=== PATIENT | female | born 1965 | race Caucasian/White ===

== ENCOUNTER 2019-09-02 20:18 | Outpatient (REF) | payer BC, SELFPAY ==
[2019-09-02 21:02] LABS: Hemoglobin A1C 5.4 % (3.8-5.6)
[2019-09-02 21:06] LABS: TSH 0.62 uIU/mL (0.36-3.74)
== END 2019-09-02 20:38 ==
LOC: NCHCN 20:18
PROVIDERS: PCP Nurse Practitioner Family; Visit Provider Family Medicine
DX: E03.9 Hypothyroidism, unspecified (principal); Z13.1 Encounter for screening for diabetes mellitus
CPT/HCPCS: 83036; 84443

== ENCOUNTER 2019-11-03 12:43 | Outpatient (REF) | payer BC, SELFPAY ==
--- NOTE | 2019-11-03 11:00 | PAPFT_PTH ---
PATIENT: Cristina Etienne LOC: [facility]#:[id number] AGE/SX: 54/F ROOM: RE11/03/[address]: Deb Huynh : 1965 BED: DIS: 11/03/2019 SPEC #: [id number] RECD: 11/04/19 12:39 STATUS: MARY KATE ELAINE #: [id number] IGOR: 11/03/19 11:[address]: Deb Mcgrath DEPT: [facility] Cytology RECD BY: Penelope Chavez ENTERED: 11/04/19 12:40 SP TYPE: PAPFT OTHR DR: Kristin Hicks Tissues: 1 - CX/ENDOCX FOR PAP SMEARS Procedures: PAP THIN PREP/[facility] Screening HPV DNA PROBE Comments: [id number]
== END 2019-11-03 13:03 ==
LOC: NCHCN 12:43
PROVIDERS: PCP Nurse Practitioner Family; Visit Provider Nurse Practitioner Family
DX: Z00.00 Encounter for general adult medical examination without abnormal findings (principal); Z12.4 Encounter for screening for malignant neoplasm of cervix; Z11.51 Encounter for screening for human papillomavirus (HPV)
CPT/HCPCS: 88142; 87624

== ENCOUNTER 2020-08-31 17:48 | Outpatient (REF) | payer OTHER, SELFPAY ==
[2020-08-31 22:06] LABS: TSH 0.81 uIU/mL (0.36-3.74)
== END 2020-08-31 17:49 | disposition home or self-care (01) ==
LOC: NCHCN 17:48
PROVIDERS: PCP Nurse Practitioner Family; Visit Provider Family Medicine
DX: E03.9 Hypothyroidism, unspecified (principal)
CPT/HCPCS: 84443

== ENCOUNTER 2021-12-19 15:04 | Outpatient (REF) | payer OTHER, SELFPAY ==
[2021-12-19 15:28] LABS: TSH 0.56 uIU/mL (0.36-3.74)
== END 2021-12-19 15:05 | disposition home or self-care (01) ==
LOC: NCHCN 15:04
PROVIDERS: PCP Nurse Practitioner Family; Visit Provider Family Medicine
DX: E03.9 Hypothyroidism, unspecified (principal)
CPT/HCPCS: 84443

== ENCOUNTER 2023-03-14 15:49 | Outpatient (REF) | payer BC, SELFPAY ==
[2023-03-14 22:13] LABS: Calculated LDL 102 mg/dL (<100); Cholesterol 208 mg/dL (<200); HDL Cholesterol 99 mg/dL (40-60); TSH 0.68 uIU/mL (0.36-3.74); Triglyceride 36 mg/dL (<150)
[2023-03-14 22:45] LABS: Hemoglobin A1C 5.3 % (<5.7)
== END 2023-03-14 15:50 | disposition home or self-care (01) ==
LOC: NCHCN 15:49
PROVIDERS: PCP Nurse Practitioner Family; Visit Provider Family Medicine
DX: E03.9 Hypothyroidism, unspecified (principal); Z13.220 Encounter for screening for lipoid disorders; Z13.1 Encounter for screening for diabetes mellitus
CPT/HCPCS: 80061; 83036; 84443

== ENCOUNTER 2024-03-12 19:45 | Outpatient (REF) | payer BC, SELFPAY ==
--- NOTE | 2024-03-12 15:30 | PAPFT_PTH ---
PATIENT: Cristina Etienne LOC: [facility]#:[id number] AGE/SX: 58/F ROOM: RE03/12/[address]: India Wagner : 1965 BED: DIS: 03/12/2024 SPEC #: [id number] RECD: 03/13/24 13:00 STATUS: MARY KATE REDiana #: [id number] IGOR: 03/12/24 15:[address]: India Wagner DEPT: [facility] Cytology RECD BY: Penelope Chavez ENTERED: 03/13/24 13:00 SP TYPE: PAPFT OTHR DR: Kristin Hicks Tissues: 1 - CX/ENDOCX FOR PAP SMEARS Procedures: PAP THIN PREP/[facility] Screening HPV DNA PROBE Comments: [id number] (HPV 16 & 18/45)
[2024-03-12 21:15] LABS: TSH 0.48 uIU/mL (0.36-3.74)
== END 2024-03-12 19:46 | disposition home or self-care (01) ==
LOC: NCHCN 19:45
PROVIDERS: PCP Nurse Practitioner Family; Visit Provider Family Medicine
DX: Z11.51 Encounter for screening for human papillomavirus (HPV) (principal); Z01.419 Encounter for gynecological examination (general) (routine) without abnormal findings
CPT/HCPCS: 88142; 84443; 87624

== ENCOUNTER 2024-11-04 17:33 | Outpatient (REF) | payer BC, SELFPAY ==
[2024-11-04 21:37] LABS: ESR 10 mm/hr (0-30)
[2024-11-04 21:38] LABS: HCT 39.8 % (36.0-46.0); HGB 13.5 g/dL (11.2-15.7); MCH 32.4 pg (27.0-33.0); MCHC 33.9 % (32.0-36.0); MCV 95 fL (80-95); MPV 9.8 fL (8.0-11.0); Platelet Count 360 10^3/uL (130-400); RBC 4.17 10^6/uL (3.93-5.22); RDW 12.2 % (11.7-14.6); RDW-SD 43.5 fL; WBC 4.76 10^3/uL (4.4-10.8)
[2024-11-04 22:04] LABS: ALT 42 U/L (14-59); AST 23 U/L (15-37); Alkaline Phosphatase 104 U/L (46-116); Anion Gap 4.4 mmol/L (3-11); BUN 17 mg/dL (7-18); Bilirubin, Total 0.3 mg/dL (0.2-1.0); CO2 33.6 mmol/L (21.0-32.0); CREATININE 0.9 mg/dL (0.55-1.02); Calcium 8.9 mg/dL (8.5-10.1); Chloride 103 mmol/L (98-107); Estimated GFR 73.64 (mL/min/1.73m2); Glucose 82 mg/dL (74-106); Potassium 4.4 mmol/L (3.5-5.1); Sodium 141 mmol/L (136-145); TSH 0.78 uIU/mL (0.36-3.74); Total Protein 7.3 g/dL (6.4-8.2)
[2024-11-06 09:54] LABS: Lyme Ab w Rflx to Lyme Confirm Negative (Negative)
== END 2024-11-04 17:34 | disposition home or self-care (01) ==
LOC: NCHCN 17:33
PROVIDERS: PCP Nurse Practitioner Family; Visit Provider Family Medicine
DX: M25.50 Pain in unspecified joint (principal); R53.83 Other fatigue
CPT/HCPCS: 80053; 85027; 85652; 84443; 86618